=== PATIENT | female | born 1985 | race Caucasian/White ===

== ENCOUNTER 2018-04-28 09:37 | Inpatient (IN) | payer OTHER ==
[~2018-04-28] VITALS: Ht 180.3 cm; Wt 3.2 kg
[2018-04-28] MEDS ORDERED: PRENATAL 19 TA1 EAC1 PO (09:53)
[2018-04-28] MEDS ORDERED: PROGESTERONE100 MG PO (09:54)
== END 2018-05-01 14:31 | DRG 788 ==
LOC: LDR 09:37 → O/R 09:37 → SURG-SUITE 09:37 → LDR 11:17 → O/R 11:47 → SURG-SUITE 13:34
PROVIDERS: Obstetrics & Gynecology
PROC: 4A1HXCZ Monitoring of Products of Conception, Cardiac Rate, External Approach (ICD-10-PCS; 2018-04-28)
PROC: 10D00Z1 Extraction of Products of Conception, Low, Open Approach (ICD-10-PCS; principal; 2018-04-28 11:00)
DX: O62.1 Secondary uterine inertia (principal); Z3A.37 37 weeks gestation of pregnancy; Z37.0 Single live birth; Z22.330 Carrier of Group B streptococcus